=== PATIENT | male | born 1990 | race Caucasian/White ===

== ENCOUNTER 2019-11-24 01:31 | Emergency (ER) | payer BC ==
[~2019-11-24] VITALS: Ht 180.3 cm; Wt 97.5 kg
--- NOTE | 2019-11-24 02:30 | NUR ---
Dr. Blanco at bedside for MSE.
[2019-11-24] MEDS ORDERED: IBUPROFEN 800 MG TABLET ONE (03:03)
[2019-11-24] MEDS ORDERED: IBUPROFEN 800 MG TABLET PO ONE (03:15)
[2019-11-24 03:17] VITALS: BP 150/80
--- NOTE | 2019-11-24 03:17 | NUR ---
Patient discharged to home in stable conditon. Written and verbal after care instructions given. Patient verbalizes understanding of instructions. Pt ambulated out of ER with steady gait, no acute signs of distress, VSS, all belongings taken.
== END 2019-11-24 03:18 | disposition home or self-care (01) ==
LOC: ER 01:43
DX: J06.9 Acute upper respiratory infection, unspecified (principal); F17.210 Nicotine dependence, cigarettes, uncomplicated
CPT/HCPCS: A4663

== ENCOUNTER 2020-12-11 16:27 | Emergency (ER) | payer SELFPAY ==
[~2020-12-11] VITALS: Ht 182.9 cm; Wt 102.1 kg
--- NOTE | 2020-12-11 16:36 | NUR ---
Dr Calloway at the bedside for MSE. Multiple skin oppening measured and provided to MD. Irrigate the sites on Rt and left hands.
[2020-12-11] MEDS ORDERED: TDAP DIPH,PERTUSS,TET VAC/PF 0.5 ML DISP.SYRIN IM ONE ×2 (16:45→16:53)
[2020-12-11] MEDS ORDERED: NEOMY/BACITRA/POLYMYXIN B OINT UD PACKET TP ONE ×2 (16:45→16:51)
--- NOTE | 2020-12-11 17:08 | NUR ---
Dressing applied to Rt and Lt hands per Md order.
[2020-12-11 17:12] VITALS: BP 150/78
--- NOTE | 2020-12-11 17:12 | NUR ---
Patient discharged to home in stable condition. Written and verbal after care instructions given. Patient verbalizes understanding of instructions. Stressed follow up or return to ER for worsening s/s.
== END 2020-12-11 17:13 | disposition home or self-care (01) ==
LOC: ER 16:28
DX: S61.214A Laceration without foreign body of right ring finger without damage to nail, initial encounter (principal); S61.215A Laceration without foreign body of left ring finger without damage to nail, initial encounter; S61.412A Laceration without foreign body of left hand, initial encounter; S61.411A Laceration without foreign body of right hand, initial encounter; W22.8XXA Striking against or struck by other objects, initial encounter; Y93.89 Activity, other specified; Y92.89 Other specified places as the place of occurrence of the external cause; R03.0 Elevated blood-pressure reading, without diagnosis of hypertension
CPT/HCPCS: 90715; A4217; A4663

== ENCOUNTER 2020-12-13 12:50 | Emergency (ER) | payer SELFPAY ==
[~2020-12-13] VITALS: Ht 182.9 cm; Wt 102.1 kg
[2020-12-13] MEDS ORDERED: NEOMY/BACITRA/POLYMYXIN B OINT UD PACKET TP ONE (13:52)
== END 2020-12-13 13:55 | disposition home or self-care (01) ==
LOC: ER 12:50
DX: S61.412D Laceration without foreign body of left hand, subsequent encounter (principal); S61.411D Laceration without foreign body of right hand, subsequent encounter; W22.8XXD Striking against or struck by other objects, subsequent encounter; S60.222D Contusion of left hand, subsequent encounter
CPT/HCPCS: 73130; A4217; A4663